=== PATIENT | male | born 1960 ===

== ENCOUNTER 2018-06-06 10:07 | Emergency (ER) | payer MEDICAID ==
[2018-06-06 10:36] VITALS: BMI 29.8
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
[2018-06-06 12:39] VITALS: BP 97/64; PULSE 56; RESP 20; TEMP 98.1
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
[2018-06-06 13:34] VITALS: O2SAT 98
== END 2018-06-06 13:46 | disposition home or self-care (01) ==
LOC: C.ER 10:07
DX: R07.81 Pleurodynia (principal); Z48.02 Encounter for removal of sutures